=== PATIENT | male | born 1945 | race Caucasian/White ===

== ENCOUNTER 2017-04-14 11:46 | Inpatient (IN) | payer OTHER, MEDICARE ==
[~2017-04-14] VITALS: Ht 175.3 cm; Wt 108.4 kg
[2017-04-14] VITALS (10 sets, daily range): BP systolic 131–173; BP diastolic 61–81; PULSE 61–81; RESP 14–24; TEMP 94.6–97.9; O2SAT 98–100
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
[2017-04-14 12:13] LABS: AUTOMATED NEUTROPHIL # 10.6 TH/MM3 (1.8-7.7); BASOPHIL # 0.1 TH/MM3 (0-0.2); BASOPHIL % 0.6 % (0.0-2.0); EOSINOPHIL # 0.3 TH/MM3 (0-0.4); EOSINOPHIL % 2.6 % (0.0-4.0); HEMATOCRIT 40.3 % (39.0-51.0); HEMO FLAGS DIFF FINAL; LYMPH % 10.5 % (9.0-44.0); LYMPHOCYTE # 1.4 TH/MM3 (1.0-4.8); MEAN CELL VOLUME 88.4 FL (80.0-100.0); MEAN CORPUSCULAR HEMOGLOBIN 29.4 PG (27.0-34.0); MEAN CORPUSCULAR HGB CONC 33.2 % (32.0-36.0); MONO % 6.4 % (0.0-8.0); NEUT % 79.9 % (16.0-70.0); PLATELET COUNT 255 TH/MM3 (150-450); RED BLOOD COUNT 4.56 MIL/MM3 (4.50-5.90); WHITE BLOOD COUNT 13.2 TH/MM3 (4.0-11.0)
[2017-04-14] MEDS ORDERED: SODIUM CHLORIDE 0.9% FLUSH 10 ML FLUSH IV FLUSH PRN (12:15)
[2017-04-14] MEDS ORDERED: ONDANSETRON HCL 4 MG/2 ML VIAL IV PRN (12:15)
[2017-04-14] MEDS ORDERED: MAGNESIUM HYDROXIDE SUSP 30 ML CUP PO PRN (12:15)
[2017-04-14] MEDS ORDERED: ENALAPRILAT 1.25 MG/ML VIAL IV PRN (12:15)
[2017-04-14] MEDS ORDERED: CHLORHEXIDINE GLUCONATE 2 % 1 PACK (2 CLOTHS) TOP PRN (12:15)
[2017-04-14] MEDS ORDERED: MORPHINE SULFATE 4 MG/ML INJ IV PRN (12:15)
[2017-04-14] MEDS ORDERED: MISCELLANEOUS NURSING INFORMATION XX SCH (12:15)
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
[2017-04-14 12:22] LABS: APTT (PATIENT) 23.4 SEC (24.3-30.1); INTERNATIONAL NORMALIZED RATIO 1.1 RATIO; PROTHROMBIN TIME - PATIENT 12.4 SEC (9.8-11.6)
[2017-04-14 12:23] LABS: I-STAT POTASSIUM 3.5 MMOL/L (3.5-4.9)
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
[2017-04-14] MEDS ORDERED: LISI-515 PO (12:56)
[2017-04-14] MEDS ORDERED: ERGO1CAP30 PO (12:56)
[2017-04-14] MEDS ORDERED: AMLO10TA2 PO (12:56)
[2017-04-14] MEDS ORDERED: ACETAMINOPHEN 325 MG TAB PO PRN (14:00)
[2017-04-14] MEDS ORDERED: DEXT 5%-NACL 0.9% 1000 ML INJ 1,000 ML IV SCH (14:00)
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
[2017-04-14] MEDS ORDERED: PANTOPRAZOLE SODIUM 40 MG VIAL IVP SCH (15:00)
[2017-04-14] MEDS: BACITRACIN TOP OINT 15 GM TUBE TOP SCH ×2 (15:00→21:00)
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
[2017-04-14 16:09] LABS: BLOOD GAS BASE EXCESS -2.7 mmol/L (-2-2); BLOOD GAS CARBOXYHEMOGLOBIN 2.2 % (0-4); BLOOD GAS HCO3 22 mmol/L (22-26); BLOOD GAS METHEMOGLOBIN 0.7 % (0-2); BLOOD GAS O2 HGB SATURATION 95 % (90-100); BLOOD GAS OXYGEN CONTENT 16.5 Vol % (12.0-20.0); BLOOD GAS PCO2 39 mmHg (38-42); BLOOD GAS PO2 101 mmHg (61-120); BLOOD GAS TOTAL HGB 12.3 G/DL (12.0-16.0); TEMP CORR TO 98.6
[2017-04-14 16:10] LABS: CRITICAL VALUE NO; DRAW SITE RT RADIAL; FIO2 21 %; NUMBER OF ARTERIAL PUNCTURES 1; STAT YES; ULNAR PULSE PRESENT
[2017-04-14] MEDS ORDERED: GLUCAGON 1 MG/ML VIAL OTHER PRN (18:15)
[2017-04-14] MEDS ORDERED: DEXTROSE 50% IN WATER 50 ML VIAL(D50) IV PRN (18:15)
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
[2017-04-14] MEDS ORDERED: LABETALOL HCL 100 MG/20 ML VIAL IV PUSH PRN (20:00)
[2017-04-14] MEDS ORDERED: DOCUSATE SODIUM 100 MG CAP PO SCH (21:00)
[2017-04-14] MEDS: INSULIN ASPART SUPPLEMENTAL SCALE SQ SCH (21:07)
[2017-04-14 21:23] LABS: CREATINE KINASE 277 U/L (39-308)
[2017-04-14 21:35] LABS: CKMB 13.3 NG/ML (0.5-3.6)
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
--- NOTE | 2017-04-14 23:24 | RADRPT ---
EXAM DATE/TIME: 04/14/2017 22:29 [place] COMPARISON: No previous studies available for comparison. INDICATIONS : Syncope. Coronary artery disease. Amnesia. MEDICAL HISTORY : Hypertension. Diabetes. Renal disease. SURGICAL HISTORY : Coronary artery stent. Cholecystectomy. Unable to obtain. ENCOUNTER: Initial ACUITY: 1 day PAIN SCORE: 0/10 LOCATION: Bilateral neck PEAK SYSTOLIC VELOCITIES (cm/sec): ICA/CCA RATIO: Right: 1.1 Left: 0.8 ICA: Right: 118 Left: 106 CCA: Right: 105 Left: 128 ECA: Right: 130 Left: 101 VERTEBRAL: Right: 49 antegrade Left: 52 antegrade Elevated flow velocities and ICA/CCA ratios have been found to correlate with increased degrees of vessel stenosis, calculated as percentage of diameter relative to a normal segment of distal ICA/CCA FINDINGS: RIGHT CAROTID: No significant stenosis is visualized. Mild calcific plaque is present. The waveforms are within norm al limits. LEFT CAROTID: No significant stenosis is visualized. Mild calcific plaque is present. The waveforms are within nor mal limits. VERTEBRAL ARTERIES: Antegrade flow is seen in both vertebral arteries. MISCELLANEOUS: None. CONCLUSION: Mild bilateral plaque with no evidence of stenosis. Faisal Castillo MD on April 14, 2017 at 23:21 Board Certified Radiologist. This report was verified electronically.
[2017-04-15] VITALS (12 sets, daily range): BP systolic 124–160; BP diastolic 57–72; PULSE 65–81; RESP 13–26; TEMP 97.7–98.7; O2SAT 96–100
[2017-04-15] MEDS: TEMAZEPAM 15 MG CAP PO PRN ×2 (00:51→20:48)
[2017-04-15] MEDS: CHLORHEXIDINE GLUCONATE 2 % 1 PACK (2 CLOTHS) TOP SCH (04:00)
[2017-04-15 06:15] LABS: AUTOMATED NEUTROPHIL # 7.4 TH/MM3 (1.8-7.7); BASOPHIL # 0.1 TH/MM3 (0-0.2); BASOPHIL % 0.7 % (0.0-2.0); EOSINOPHIL # 0.2 TH/MM3 (0-0.4); EOSINOPHIL % 2.1 % (0.0-4.0); HEMATOCRIT 32.4 % (39.0-51.0); HEMO FLAGS DIFF FINAL; LYMPHOCYTE # 1.2 TH/MM3 (1.0-4.8); MEAN CORPUSCULAR HEMOGLOBIN 30.1 PG (27.0-34.0); MEAN CORPUSCULAR HGB CONC 34.2 % (32.0-36.0); MONO % 7.4 % (0.0-8.0); NEUT % 76.8 % (16.0-70.0); PLATELET COUNT 201 TH/MM3 (150-450); RED BLOOD COUNT 3.68 MIL/MM3 (4.50-5.90); WHITE BLOOD COUNT 9.6 TH/MM3 (4.0-11.0)
[2017-04-15 06:36] LABS: ALT (GPT) 24 U/L (12-78); ANION GAP 8 MEQ/L (5-15); AST (GOT) 20 U/L (15-37); BICARBONATE 24.7 MEQ/L (21.0-32.0); BLOOD UREA NITROGEN 21 MG/DL (7-18); CHLORIDE 109 MEQ/L (98-107); GLOMERULAR FILTRATION RATE 40 ML/MIN (>89); POTASSIUM 3.5 MEQ/L (3.5-5.1); SODIUM (NA) 142 MEQ/L (136-145)
[2017-04-15 06:40] LABS: ALKALINE PHOSPHATASE 47 U/L (45-117); CREATINE KINASE 199 U/L (39-308); TOTAL BILIRUBIN ADULT 0.3 MG/DL (0.2-1.0)
[2017-04-15 06:52] LABS: CKMB 7.7 NG/ML (0.5-3.6)
[2017-04-15] MEDS: INSULIN ASPART SUPPLEMENTAL SCALE SQ SCH ×4 (07:00→21:06)
[2017-04-15] MEDS: BACITRACIN TOP OINT 15 GM TUBE TOP SCH ×2 (09:00→21:07)
--- NOTE | 2017-04-15 10:37 | EKG ---
Date Performed: 04/14/2017 Time Performed: 16:34:30 PTAGE: 72 years EKG: Sinus rhythm . Inferior T wave changes are nonspecific Borderline ECG NO PREVIOUS TRACING DOCTOR: Binh Galindo Interpretating Date/Time 04/15/2017 10:36:12
--- NOTE | 2017-04-15 11:54 | EKG ---
Date Performed: 04/15/2017 Time Performed: 10:07:47 PTAGE: 72 years EKG: Sinus rhythm NORMAL ECG PREVIOUS TRACING : 04/14/2017 16.34 DOCTOR: Binh Galindo Interpretating Date/Time 04/15/2017 11:52:51
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
[2017-04-15] MEDS: ASPIRIN EC 81 MG TABEC PO SCH (13:49)
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
[2017-04-15 14:37] LABS: CREATINE KINASE 179 U/L (39-308)
[2017-04-15 14:49] LABS: CKMB 6.6 NG/ML (0.5-3.6)
[2017-04-15] MEDS: CARVEDILOL 12.5 MG TAB PO SCH (20:48)
[2017-04-15] MEDS: LISINOPRIL 20 MG TAB PO SCH (20:48)
[2017-04-15] MEDS ORDERED: PRAVASTATIN SOD 80 MG TAB PO SCH (21:00)
[2017-04-15] MEDS ORDERED: INSULIN DETEMIR 100 UNITS/ML VIAL SQ SCH (21:00)
[2017-04-16 01:14] VITALS: BP 104/69; PULSE 71; RESP 18; TEMP 97.8; O2SAT 97
[2017-04-16] MEDS: CHLORHEXIDINE GLUCONATE 2 % 1 PACK (2 CLOTHS) TOP SCH (03:37)
[2017-04-16 04:00] VITALS: BP 132/69; PULSE 66; RESP 16; TEMP 97.8; O2SAT 97
[2017-04-16] MEDS: INSULIN ASPART SUPPLEMENTAL SCALE SQ SCH ×2 (06:52→12:40)
[2017-04-16 08:00] VITALS: BP 149/73; PULSE 68; RESP 18; TEMP 97.9; O2SAT 97
[2017-04-16] MEDS ORDERED: FENOFIBRATE 145 MG TAB PO SCH (09:00)
[2017-04-16] MEDS: CARVEDILOL 12.5 MG TAB PO SCH (09:23)
[2017-04-16] MEDS: LISINOPRIL 20 MG TAB PO SCH (09:23)
[2017-04-16] MEDS: ASPIRIN EC 81 MG TABEC PO SCH (09:23)
[2017-04-16] MEDS: BACITRACIN TOP OINT 15 GM TUBE TOP SCH (09:23)
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
== END 2017-04-16 14:18 | disposition home or self-care (01) | DRG 605 ==
LOC: NEPI 11:46 → EDBD 12:11 → NEDA 12:11 → N03B 13:26 → N05A 04-15 18:48
PROVIDERS: ADMIT Specialist; ATTEND Specialist
PROC: 0HQ0XZZ Repair Scalp Skin, External Approach (ICD-10-PCS; principal; 2017-04-14)
PROC: 3E0F7GC Introduction of Other Therapeutic Substance into Respiratory Tract, Via Natural or Artificial Opening (ICD-10-PCS; 2017-04-14)
DX: S01.01XA Laceration without foreign body of scalp, initial encounter (principal); E11.22 Type 2 diabetes mellitus with diabetic chronic kidney disease; E11.649 Type 2 diabetes mellitus with hypoglycemia without coma; N18.3 Chronic kidney disease, stage 3 (moderate); V48.5XXA Car driver injured in noncollision transport accident in traffic accident, initial encounter; Y93.89 Activity, other specified; Y92.9 Unspecified place or not applicable; I25.10 Atherosclerotic heart disease of native coronary artery without angina pectoris; Z95.5 Presence of coronary angioplasty implant and graft; K52.9 Noninfective gastroenteritis and colitis, unspecified; M50.31 Other cervical disc degeneration, high cervical region; M50.321 Other cervical disc degeneration at C4-C5 level; R91.1 Solitary pulmonary nodule; E04.1 Nontoxic single thyroid nodule; I12.9 Hypertensive chronic kidney disease with stage 1 through stage 4 chronic kidney disease, or unspecified chronic kidney disease; Z87.891 Personal history of nicotine dependence; Z83.3 Family history of diabetes mellitus; Z82.49 Family history of ischemic heart disease and other diseases of the circulatory system; I87.8 Other specified disorders of veins; S80.811A Abrasion, right lower leg, initial encounter; E66.9 Obesity, unspecified; D47.2 Monoclonal gammopathy; K86.89 Other specified diseases of pancreas; E78.5 Hyperlipidemia, unspecified; M43.12 Spondylolisthesis, cervical region; R55 Syncope and collapse
CPT/HCPCS: 36600; 70450; 71010; 71250; 72125; 72170; 74176; 80053; 82435; 82550; 82552; 82565; 82805; 82947; 82948; 84132; 84295; 84484; 84520; 85025; 85610; 85730; 86850; 86900; 86901; 87641; 93005; 93306; 93880; 94150; C9113; J1815